=== PATIENT | male | born 1990 | race Caucasian/White ===

== ENCOUNTER 2017-12-28 18:04 | Emergency (ER) | payer SELFPAY ==
[~2017-12-28] VITALS: Ht 172.7 cm; Wt 87.1 kg
--- NOTE | 2017-12-28 18:04 | NUR ---
BIB [facility],FOUND LAYING IN THE SIDEWALK, SUSPECTED OF ALCOHOL INTOXICATION. PT WAS UNABLE TO GET UP. PT IS A POOR HISTORIAN. UNABLE TO PROVIDE INFORMATION DUE TO CLINICAL CONDITION. PT PLACED ON CONT CARDIAC AND POX MONITORING. WILL CONT TO MONITOR
--- NOTE | 2017-12-28 18:36 | NUR ---
LEX MEDINA AT BEDSIDE FOR EVAL.
--- NOTE | 2017-12-28 18:48 | NUR ---
IV LINE STARTED BLOOD DRAWN AND SENT TO LAB.
[2017-12-28 19:01] LABS: BASOPHILS % (AUTO) 0.1 % (0.0-2.0); EOSINOPHILS % (AUTO) 0.1 % (0.0-6.0); HEMATOCRIT 47 % (39-51); HEMOGLOBIN 16.3 g/dL (13.5-17.5); LYMPHOCYTES % (AUTO) 25.4 % (20.0-44.0); MEAN CORPUSCULAR HEMOGLOBIN 28 PG (26.0-33.0); MEAN CORPUSCULAR HGB CONC 35 g/dl (31.0-36.0); MEAN CORPUSCULAR VOLUME 82 fL (80-96); MONOCYTES # (AUTO) 0.8 /CMM (0.1-1.30); MONOCYTES % (AUTO) 9.7 % (2.0-12.0); NEUTROPHILS # (AUTO) 5.1 /CMM (1.8-8.9); NEUTROPHILS % (AUTO) 64.7 % (43.0-81.0); PLATELET COUNT (AUTO) 255 /CMM (150-450); RDW COEFFICIENT OF VARIATION 14.2 (11.5-15.0); RED BLOOD CELL COUNT(AUTO) 5.77 MIL/uL (4.5-6.0); WHITE BLOOD COUNT (AUTO) 7.9 K/uL (4.3-11.0)
[2017-12-28 19:10] LABS: APPEARANCE,URINE SL CLOUDY (CLEAR); BILIRUBIN,URINE NEGATIVE (NEGATIVE); BLOOD, URINE 2+ Ery/uL (NEGATIVE); COLOR,URINE YELLOW (YELLOW); KETONES,URINE NEGATIVE (NEGATIVE); LEUKOCYTE ESTERASE ,URINE NEGATIVE (NEGATIVE); NITRITE, URINE NEGATIVE (NEGATIVE); PROTEIN,URINE 1+ mg/dl (NEGATIVE); UGLUCOSE NEGATIVE (NEGATIVE); UROBILINOGEN,URINE 0.2 EU/dL (0.2)
[2017-12-28 19:20] LABS: CALCIUM, SERUM 7.5 mg/dL (8.5-10.1); CARBON DIOXIDE 27 mmol/L (21-32); CHLORIDE 93 mmol/L (98-107); CREATININE 0.8 mg/dL (0.6-1.3); GLUCOSE 121 mg/dL (74-106); INR 1.07 (0.87-1.13); POTASSIUM 3.2 mmol/L (3.5-5.1); SODIUM SERUM 134 mmol/L (136-145); UREA NITROGEN, BLOOD 11 mg/dL (7-18)
[2017-12-28 19:25] LABS: BACTERIA,URINE None seen /HPF (None Seen); SQUAMOUS EPITHELIAL CELL,UR Rare /HPF (None Seen); WBC,URINE 0-2 /HPF (0-3)
[2017-12-28 19:29] LABS: ALANINE AMINOTRANSFERASE 670 U/L (12-78); ALCOHOL, BLOOD 472 mg/dL (0-0); ALKALINE PHOSPHATASE 148 U/L (46-116); ASPARTATE AMINOTRANSFERASE 344 U/L (15-37); BILIRUBIN,DIRECT 0.4 mg/dL (0.0-0.2); BILIRUBIN,TOTAL 1.2 mg/dL (0.2-1.0); TOTAL PROTEIN, SERUM 8.6 g/dL (6.4-8.2)
[2017-12-28 19:37] LABS: ACETAMINOPHEN 0 ug/ml (10-30); SALICYLATE < 0.2 mg/dL (2.8-20.0)
[2017-12-28] MEDS ORDERED: POTASSIUM CHLORIDE 20 MEQ TAB.PRT.SR PO ONE ×2 (22:00→22:22)
[2017-12-28] MEDS ORDERED: POTASSIUM CHLORIDE 10 MEQ TABLET.SA ONE (22:23)
--- NOTE | 2017-12-28 23:17 | NUR ---
PT AWAKE, AGITATED AND YELLLING. DR HERNANDEZ MADE AWARE. NO NEW ORDERS AT THIS TIME.
[2017-12-28] MEDS ORDERED: OLANZAPINE 10 MG VIAL IM ONE ×2 (23:21→23:30)
--- NOTE | 2017-12-28 23:26 | NUR ---
MEDICATED ORDERED. SEE EMAR.
--- NOTE | 2017-12-28 23:36 | NUR ---
REPORT TO CHARGE NURSE MORENO FOR KIRBY.
--- NOTE | 2017-12-29 00:55 | NUR ---
RESTING SUPINE WITH NO S/S OF DISTRESS. RESP EVEN AND UNLABORED. SLOWLY AROUSABLE. WILL CONTINUE TO MONITOR PT.
--- NOTE | 2017-12-29 02:15 | NUR ---
PLACED ON O2 AT 2L/MIN BNC AFTER 90% RA. STILL MONITOR AND NO S/S OF ACUTE DISTRESS NOTED AT THIS TIME.
--- NOTE | 2017-12-29 03:24 | NUR ---
REASSESSED AND LYING RT SIDE. NAD NOTED. RESP EVEN AND UNLABORED.
--- NOTE | 2017-12-29 04:27 | NUR ---
LYING SUPINE AT THIS TIME. NO OTHER NEW CHANGES FROM PREVIOUS ASSESSMENT. RESP EVEN AND UNLABORED.
--- NOTE | 2017-12-29 05:31 | NUR ---
AAO X4; GIVEN ICE WATER REQUESTED.
[2017-12-29 06:06] VITALS: BP 130/75
--- NOTE | 2017-12-29 06:07 | NUR ---
Ambulatory with a steady gait. Denies any medical/psych c/o at this time. Resp even and unlabored. Patient discharged to home in stable condition. Written and verbal after care instructions given. Patient verbalizes understanding of instruction.
== END 2017-12-29 06:07 | disposition home or self-care (01) ==
LOC: ER 18:09 → EDBD 18:09 → ER 12-29 06:07
DX: F10.121 Alcohol abuse with intoxication delirium (principal); Y90.8 Blood alcohol level of 240 mg/100 ml or more
CPT/HCPCS: 36415; 71045; 80048; 80076; 80305; 80329; 81001; 82962; 83735; 85025; 85730; 93005; 96372; 99285; A4606 ×2; G0480 ×2; J3490; Z7610 ×2; 81000-TC

== ENCOUNTER 2018-01-01 08:09 | Emergency (ER) | payer SELFPAY ==
[~2018-01-01] VITALS: Ht 172.7 cm; Wt 86.2 kg
[2018-01-01] MEDS ORDERED: IV NS 0.9% 1,000 ML BAG IV ONE (08:30)
--- NOTE | 2018-01-01 08:36 | NUR ---
MAGGY FROM STREET FOR SUSPECTED ETOH-- POSITIVE ETOH BREATH. ASLEEP. EASILY AROUSE. NOT IN DISTRESS. NO SOB, AFEBRILE. VSS
[2018-01-01 08:56] LABS: BASOPHILS % (AUTO) 0.2 % (0.0-2.0); HEMATOCRIT 44 % (39-51); HEMOGLOBIN 14.7 g/dL (13.5-17.5); LYMPHOCYTES # (AUTO) 1.6 /CMM (0.8-4.8); LYMPHOCYTES % (AUTO) 20.7 % (20.0-44.0); MEAN CORPUSCULAR HEMOGLOBIN 28 PG (26.0-33.0); MEAN CORPUSCULAR HGB CONC 33 g/dl (31.0-36.0); MEAN CORPUSCULAR VOLUME 84 fL (80-96); MONOCYTES # (AUTO) 0.4 /CMM (0.1-1.30); MONOCYTES % (AUTO) 5.4 % (2.0-12.0); NEUTROPHILS # (AUTO) 5.6 /CMM (1.8-8.9); NEUTROPHILS % (AUTO) 73.7 % (43.0-81.0); PLATELET COUNT (AUTO) 163 /CMM (150-450); RDW COEFFICIENT OF VARIATION 14.7 (11.5-15.0); RED BLOOD CELL COUNT(AUTO) 5.25 MIL/uL (4.5-6.0); WHITE BLOOD COUNT (AUTO) 7.6 K/uL (4.3-11.0)
[2018-01-01 09:04] LABS: CALCIUM, SERUM 7.9 mg/dL (8.5-10.1); CREATININE 0.7 mg/dL (0.6-1.3); POTASSIUM 3.8 mmol/L (3.5-5.1)
[2018-01-01] MEDS ORDERED: OLANZAPINE 5 MG TABLET ONE (14:13)
[2018-01-01] MEDS ORDERED: OLANZAPINE 5 MG/TAB.RAPDIS PO ONE (14:30)
[2018-01-01] MEDS ORDERED: LORAZEPAM INJ 2 MG/ML VIAL ONE (15:12)
[2018-01-01] MEDS ORDERED: LORAZEPAM INJ 2 MG/ML VIAL IM ONE (15:30)
--- NOTE | 2018-01-01 19:16 | NUR ---
ASSUMED CARE OF PT. PT RESTING IN BED WITH NO S/S OF DISTRESS NOTED
--- NOTE | 2018-01-01 21:00 | NUR ---
Patient is resting comfortably in bed with eyes closed. Easily aroused. VSS
--- NOTE | 2018-01-01 22:35 | NUR ---
Patient discharged to home in stable condition. Written and verbal after care instructions given. Patient verbalizes understanding of instruction.IV removed. Catheter intact and site benign. Pressure and 4x4 applied to site. No bleeding noted. NO S/S OF DISTRESS NOTED. PT AMBULATED WITH STEADY GAIT NOTED.
[2018-01-01 22:36] VITALS: BP 129/76
== END 2018-01-01 22:37 | disposition home or self-care (01) ==
LOC: ER 08:10
DX: F10.129 Alcohol abuse with intoxication, unspecified (principal); Y90.8 Blood alcohol level of 240 mg/100 ml or more
CPT/HCPCS: 36415; 80048-TC; 85025-TC; A4606; G0480; J2060; J7030; Z7610